=== PATIENT | female | born 1970 | race Caucasian/White ===

== ENCOUNTER 2019-02-17 19:50 | Emergency (ER) | payer BC ==
--- NOTE | 2019-02-17 19:58 | ER Report ---
History and Physical Time Seen By MD: 19:58 HPI/ROS CHIEF COMPLAINT: Near syncope, fall HISTORY OF PRESENT ILLNESS: 48-year-old female with a history of hypothyroidism, depression, status post a gastric sleeve with weight loss and improvement of her 2 Diabetes, now diet controlled, has been feeling near syncope for 3 months. She describes pulsations or she feels her heart pounding and she feels like she's got a faint it's worse in the afternoon. This afternoon she felt dizzy and collapsed on a flight of stairs. She fell to her, but slid down the stairs. She did not lose complete consciousness. Patient denies shortness of breath, f ever or cough. She denies chest pain or cardiac disease. She denies leg swelling or calf pain. She appears grossly pale. She denies a history of anemia. She denies heavy menstrual periods. REVIEW OF SYSTEMS: Respiratory: No cough, no dyspnea. Cardiovascular: No chest pain, no palpitations. Gastrointestinal: No vomiting, no abdominal pain. Musculoskeletal: No back pain. Allergies: Coded Allergies: No Known Drug Allergies (Unverified , 02/17/19) Home Meds Reported Medications Cyanocobalamin (Vitamin B-12) (VITAMIN B-12) 500 Mcg Tablet, PO 02/17/19 Sertraline Hcl (ZOLOFT) 50 Mg Tablet, 1 TAB PO QDAY, TAB 02/17/19 Levothyroxine Sodium (LEVOTHYROXINE SODIUM) 75 Mcg Tablet, 75 MCG PO QDAY, TAB 02/17/19 Reviewed Nurses Notes: Yes Old Medical Records Reviewed: Yes Constitutional Vital Sign - Last 24 Hours 02/17/19 02/17/19 02/17/19 02/17/19 19:54 19:56 20:00 20:20 Temp 98.3 Pulse 66 67 Resp 16 B/P (MAP) 127/59 (81) 127/59 124/75 (91) Pulse Ox 96 97 O2 Delivery Room Air 02/17/19 02/17/19 02/17/19 02/17/19 20:30 20:35 21:00 21:59 Pulse 67 B/P (MAP) /?/??? (1665) 109/66 (80) Pulse Ox 98 Physical Exam General Appearance: The patient is alert, has no immediate need for airway protection and no current signs of toxicity. Vital signs stable, afebrile, pulse ox normal, patient appears grossly pale, consistent with anemia HEENT: Pupils equal and round no injection., Conjunctiva are grossly pale TMs normal, oropharynx without redness Respiratory: Chest is non tender, lungs are clear to auscultation. No wheezing or rails Cardiac: regular rate and rhythm, no murmur Gastrointestinal: Abdomen is soft and non tender, no masses, bowel sounds normal. Musculoskeletal: Neck: Neck is supple and non tender. Extremities have full range of motion and are non tender. Skin: No rashes or lesions. DIFFERENTIAL DIAGNOSIS: After history and physical exam differential diagnosis was considered for syncope including but not limited to vasovagal syncope, arrhythmia, dehydration, and blood loss. Medical Decision Making Data Points Result Diagram: 02/17/19201202/17/192012 Laboratory Hematology Test 02/17/19 20:13 Red Blood Count 5.09 M/uL (4.17-5.56) Mean Corpuscular Volume 52.8 fL (80.0-96.0) Mean Corpuscular Hemoglobin 14.6 pg (26.0-33.0) Mean Corpuscular Hemoglobin Concent 27.6 g/dL (32.0-36.0) Red Cell Distribution Width 19.8 % (11.5-14.5) Mean Platelet Volume 8.6 fL (7.2-11.1) Neutrophils (%) (Auto) % (39.4-72.5) Lymphocytes (%) (Auto) % (17.6-49.6) Monocytes (%) (Auto) % (4.1-12.4) Eosinophils (%) (Auto) % (0.4-6.7) Basophils (%) (Auto) % (0.3-1.4) Nucleated RBC Relative Count (auto) /100WBC Neutrophils # (Auto) K/uL (2.0-7.4) Lymphocytes # (Auto) K/uL (1.3-3.6) Monocytes # (Auto) K/uL (0.3-1.0) Eosinophils # (Auto) K/uL (0.0-0.5) Basophils # (Auto) K/uL (0.0-0.1) Nucleated RBC Absolute Count (auto) K/uL Neutrophils % (Manual) 68 % (39.4-72.5) Lymphocytes % (Manual) 27 % (17.6-49.6) Monocytes % (Manual) 5 % (4.1-12.4) Eosinophils % (Manual) 0 % (0.4-6.7) Basophils % (Manual) 0 % (0.3-1.4) Hypochromasia 3+ Poikilocytosis 2+ Basophilic Stippling 2+ Anisocytosis 3+ Microcytosis 3+ Macrocytosis 1+ Target Cells 1+ Ovalocytes 2+ Stomatocytes 1+ Acanthocytes 1+ Peripheral Blood Smear Yes Y/N D-Dimer Quantitative (PE/DVT) 0.59 ug/ml (0-0.50) Sodium Level 140 mmol/L (137-145) Potassium Level 3.7 mmol/L (3.5-5.0) Chloride Level 107 mmol/L (98-107) Carbon Dioxide Level 22 mmol/L (22-31) Blood Urea Nitrogen 9 mg/dl (7-18) Creatinine 0.50 mg/dl (0.52-1.04) Glomerular Filtration Rate Calc > 60.0 Random Glucose 111 mg/dl (75-110) Calcium Level 8.9 mg/dl (8.4-10.2) Total Bilirubin 0.2 mg/dl (0.2-1.3) Aspartate Amino Transf (AST/SGOT) 9 U/L (0-35) Alanine Aminotransferase (ALT/SGPT) 10 U/L (0-56) Alkaline Phosphatase 132 U/L (0-126) Troponin I < 0.012 ng/ml Total Protein 7.6 g/dl (6.3-8.2) Albumin 4.4 g/dl (3.5-5.0) Human Chorionic Gonadotropin, Qual Negative (NEGATIVE) Chemistry Test 02/17/19 20:13 White Blood Count 6.9 k/uL (4.5-11.0) Red Blood Count 5.09 M/uL (4.17-5.56) Hemoglobin 7.4 g/dL (12.0-16.0) Hematocrit 26.9 % (34.0-47.0) Mean Corpuscular Volume 52.8 fL (80.0-96.0) Mean Corpuscular Hemoglobin 14.6 pg (26.0-33.0) Mean Corpuscular Hemoglobin Concent 27.6 g/dL (32.0-36.0) Red Cell Distribution Width 19.8 % (11.5-14.5) Platelet Count 292 K/uL (150-450) Mean Platelet Volume 8.6 fL (7.2-11.1) Neutrophils (%) (Auto) % (39.4-72.5) Lymphocytes (%) (Auto) % (17.6-49.6) Monocytes (%) (Auto) % (4.1-12.4) Eosinophils (%) (Auto) % (0.4-6.7) Basophils (%) (Auto) % (0.3-1.4) Nucleated RBC Relative Count (auto) /100WBC Neutrophils # (Auto) K/uL (2.0-7.4) Lymphocytes # (Auto) K/uL (1.3-3.6) Monocytes # (Auto) K/uL (0.3-1.0) Eosinophils # (Auto) K/uL (0.0-0.5) Basophils # (Auto) K/uL (0.0-0.1) Nucleated RBC Absolute Count (auto) K/uL Neutrophils % (Manual) 68 % (39.4-72.5) Lymphocytes % (Manual) 27 % (17.6-49.6) Monocytes % (Manual) 5 % (4.1-12.4) Eosinophils % (Manual) 0 % (0.4-6.7) Basophils % (Manual) 0 % (0.3-1.4) Hypochromasia 3+ Poikilocytosis 2+ Basophilic Stippling 2+ Anisocytosis 3+ Microcytosis 3+ Macrocytosis 1+ Target Cells 1+ Ovalocytes 2+ Stomatocytes 1+ Acanthocytes 1+ Peripheral Blood Smear Yes Y/N D-Dimer Quantitative (PE/DVT) 0.59 ug/ml (0-0.50) Glomerular Filtration Rate Calc > 60.0 Calcium Level 8.9 mg/dl (8.4-10.2) Total Bilirubin 0.2 mg/dl (0.2-1.3) Aspartate Amino Transf (AST/SGOT) 9 U/L (0-35) Alanine Aminotransferase (ALT/SGPT) 10 U/L (0-56) Alkaline Phosphatase 132 U/L (0-126) Troponin I < 0.012 ng/ml Total Protein 7.6 g/dl (6.3-8.2) Albumin 4.4 g/dl (3.5-5.0) Human Chorionic Gonadotropin, Qual Negative (NEGATIVE) Coagulation Test 02/17/19 20:13 D-Dimer Quantitative (PE/DVT) 0.59 ug/ml EKG/Imaging EKG Interpretation 12 lead EK Rhythm: normal sinus rhythm [place]: normal QRS: normal ST segments: normal, no evidence of ischemia or dysrhythmia ED Course/Re-evaluation Clinical Indication for ER IV: Hydration, IV Access ED Course Patient was admitted to an examination room. H&P was done. The differential diagnoses was considered. Patient with a syncopal episode. She appears grossly anemic on physical examination. It was confirmed with an H&H of 7 and 27. Patient chose indices consistent with iron deficiency. She is supposed to be taking iron but does not like to take it. Patient sustained no injury during her syncopal episode. The remainder of her diagnostic workup is unremarkable. She is treated with 1 L of normal saline and feels improved. She is advised to begin iron replacement. She has a history of 2 gastric sleeve surgeries. I suspect she is not absorbing iron likely need parenteral iron. She is advised to follow-up with her primary care for referral to hematology. Decision to Disposition Date: February 17, 2019 Decision to Disposition Time: 21:03 Depart Departure Latest Vital Signs Vital Signs Date Time Temp Pulse Resp B/P (MAP) Pulse Ox O2 Delivery O2 Flow Rate FiO2 02/17/19 21:59 109/66 (80) 02/17/19 20:35 67 98 02/17/19 19:56 98.3 16 Room Air Impression: Primary Impression: Iron deficiency anemia Additional Impressions: Near syncope History of gastric surgery Condition: Improved Disposition: HOME OR SELF-CARE Patient Instructions: Iron Deficiency Anemia (ED) Additional Instructions: Follow-up with primary care for monitoring of your iron deficiency. You will need aggressive iron supplementation and likely B-12 supplementation Problem Qualifiers Primary Impression: Iron deficiency anemia Iron deficiency anemia type: unspecified iron deficiency Qualified Codes: D50.9 - Iron deficiency anemia, unspecified ARMANDO GUERIN DO February 17, 2019 19:58
[2019-02-17] MEDS ORDERED: NS(*) 0.9% 1000 ML BAG 1,000 ML IV ONE (20:03)
[2019-02-17] MEDS ORDERED: SERT-1 PO (20:08)
[2019-02-17] MEDS ORDERED: LEVO75TA73 PO (20:08)
[2019-02-17] MEDS ORDERED: CYAN500T39 PO (20:08)
[2019-02-17 20:21] LABS: PLATELET COUNT, AUTOMATED 292 K/uL (150-450)
--- NOTE | 2019-02-17 21:19 | EKG ---
FACILITY: [facility] - [place] PATIENT NAME: XENIA GARCIA : [id number] MR: [id number] V: [id number] EXAM DATE: ORDERING PHYSICIAN: ARMANDO GUERIN TECHNOLOGIST: ARJUN Test Reason : SYNCOPE Blood Pressure : / mmHG Vent. Rate : 063 BPM Atrial Rate : 063 BPM P-R Int : 136 ms QRS Dur : 088 ms QT Int : 436 ms P-R-T Axes : 006 -24 009 degrees QTc Int : 446 ms Normal sinus rhythm Normal ECG No previous ECGs available Confirmed by Andrey De La Rosa ([id number]) on 02/18/2019 6:51:08 AM Referred By: Confirmed By:Andrey Jones
[2019-02-17 21:59] VITALS: BP 109/66
[2019-02-17] MEDS ORDERED: IOPAMIDOL 76% 100 ML INFUS BTL 100 ML ONE (22:16)
[2019-02-17] MEDS ORDERED: NS(*) 0.9% 50 ML BAG 50 ML ONE (22:17)
--- NOTE | 2019-02-17 22:46 | RADIOLOGY IMAGING REPORT ---
FACILITY: [facility] - [place] PATIENT NAME: Janee Gaines : 1970 MR: [id number] V: [id number] EXAM DATE: ORDERING PHYSICIAN: ARMANDO GUERIN TECHNOLOGIST: Location: [facility] - [place] Patient: Janee Gaines : 1970 Visit/Account:[id number] Date of Sevice: 02/17/2019 CT CTA CHEST W & W/O CON HISTORY: Shortness of breath ADDITIONAL HISTORY: None. TECHNIQUE: CTA chest with contrast. 3D coronal slab MIPs and 2D reconstructions in the coronal and sagittal planes were also created. One of the following dose optimization techniques was utilized in the performance of this exam: automated exposure control; adjustment of the mA and/or kv according to patient size; or use of iterative reconstruction technique. Specific details can be referenced in [email or web address] facility's radiology CT exam operational policy. CONTRAST: 75 cc of Isovue-370 COMPARISON: None. FINDINGS: Vessels: No acute filling defect within the main, lobar or segmental pulmonary arteries. Duplicated SVC noted. Lower neck: Negative. Heart and pericardium: Negative Mediastinum/hilum/lymph nodes: Negative. Lungs/pleura: Negative. Visualized upper abdomen: Gastric sleeve procedure. Gallstones. Bones/soft tissues: Negative. Other findings: None significant IMPRESSION: 1. Negative for acute pulmonary embolism. 2. No other acute chest process identified. Report Dictated By: Jeramy Cagle MD at 02/17/2019 10:38 PM Report E-Signed By: Jeramy Cagle MD at 02/17/2019 10:42 PM WSN:[id number]
== END 2019-02-17 23:25 | disposition home or self-care (01) ==
LOC: ER 20:03
DX: D50.9 Iron deficiency anemia, unspecified (principal); E03.9 Hypothyroidism, unspecified; E11.9 Type 2 diabetes mellitus without complications; F32.9 Major depressive disorder, single episode, unspecified; Z98.84 Bariatric surgery status; Z79.899 Other long term (current) drug therapy
CPT/HCPCS: 71275; 84484; 84703; 85025; 85379; 93005; 96360; 99284; J7030; J7050; Q9967; 82040; 82247; 82310; 82374; 82435; 82565; 82947; 84075; 84132; 84155; 84295; 84450; 84460; 84520

== ENCOUNTER → 2019-02-23 | Outpatient (REF) | payer BC ==
[~2019-02-23] MED LIST: CYAN500T39 PO; LEVO75TA73 PO; SERT-1 PO
[2019-02-23 12:33] LABS: PLATELET COUNT, AUTOMATED 312 K/uL (150-450)
== END ==
LOC: ZZSENDIN 12:13
PROVIDERS: ATTEND Physician Assistant
DX: D64.9 Anemia, unspecified (principal)
CPT/HCPCS: 36415; 82728; 85007; 85027; 85045